=== PATIENT | female | born 1980 | race Caucasian/White ===

== ENCOUNTER 2020-11-26 10:33 | Inpatient (IN) | payer BC ==
[~2020-11-26] VITALS: Ht 167.6 cm; Wt 106.9 kg
[~2020-11-26 10:33] MED LIST: AMOX-367 PO; BENA40TA3 PO; FURO40TA6 PO; LOVA20TA2 PO; METF500T17 PO; ONDA4TAB7 PO; POTA10TA11 PO
[2020-11-26] MEDS ORDERED: ONDANSETRON 2MG/ML, 2ML IVPush ONE (12:30)
[2020-11-26] MEDS ORDERED: PHARMACOKINETIC CONSULTATION MC ONE (12:30)
[2020-11-26] MEDS ORDERED: VANCOMYCIN PER PHARMACY MC PRN ×2 (12:30→15:00)
[2020-11-26] MEDS ORDERED: morphine SULFATE 10 MG/ML, 1ML IV ONE (12:30)
[2020-11-26] MEDS ORDERED: AMPICILLIN/SULBACTAM 3 GM in SODIUM CHLORIDE 0.9% 100 ML IV ONE (12:30)
[2020-11-26] MEDS ORDERED: SODIUM CHLORIDE 0.9% 1,000ML IVBOLUS ONE (12:30)
[2020-11-26] MEDS ORDERED: MORPHINE SULFATE 4 MG/ML, 1ML ONE (12:48)
[2020-11-26] MEDS ORDERED: ONDANSETRON 2MG/ML, 2ML ONE (12:48)
[2020-11-26] MEDS ORDERED: SIMV20TA19 PO (13:00)
[2020-11-26] MEDS ORDERED: SITA100T PO (13:00)
[2020-11-26] MEDS ORDERED: VANCOMYCIN 2,200 MG in SODIUM CHLORIDE 0.9% 500 ML IV ONE (13:00)
[2020-11-26 13:20] LABS: CHLORIDE 96 mmol/L (98-107)
--- NOTE | 2020-11-26 13:21 | NUR ---
PIV STARTED, LABS DRAWN. ABX STARTED. PER ERP CULTURES NOT INDICATED AT THIS TIME. PT RESTING ON GURNEY W/ CALL LIGHT IN REACH AND SIDE RAILS UPX2. DANA CHANG. FAMILY AT BEDSIDE.
[2020-11-26 13:25] LABS: ANION GAP 11 mmol/L (5-15); CALCIUM 8.3 mg/dL (8.5-10.1); CREATININE 0.59 mg/dL (0.55-1.02)
[2020-11-26 13:41] LABS: BASOPHILS % (AUTO) 0 % (0-1); EOSINOPHILS % (AUTO) 0 % (1-7); LYMPHOCYTES % (AUTO) 18 % (22-44); MEAN CORPUSCULAR HEMOGLOBIN 28.9 pg (27.0-34.8); MEAN CORPUSCULAR HGB CONC 33.6 g/dL (32.4-35.8); MEAN PLATELET VOLUME 9.9 fL (7.4-10.4); MONOCYTES % (AUTO) 10 % (2-9); NEUTROPHILS % (AUTO) 72 % (42-75); PLATELET COUNT 180 x10^3/uL (130-400); RED BLOOD COUNT 4.58 x10^6/uL (3.82-5.3); RED CELL DISTRIBUTION WIDTH 13.8 % (9.6-15.2)
--- NOTE | 2020-11-26 13:50 | NUR ---
US AT BEDSIDE.
[2020-11-26 13:51] LABS: MD NO
--- NOTE | 2020-11-26 14:05 | NUR ---
ALL TESTS RESULTED. PT IS UP FOR RECHECK AT THIS TIME. NADN. LOGAN CHANG STARTED.
[2020-11-26] MEDS ORDERED: SODIUM CHLORIDE FLUSH 10ML SYR IVF PRN (14:30)
--- NOTE | 2020-11-26 14:59 | NUR ---
REPORT GIVEN TO GI GUTIERRES. PT IS READY FOR TRANSPORT AT THIS TIME. NADN. LOGAN CHANG INFUSING PER EMAR.
[2020-11-26] MEDS ORDERED: PROMETHAZINE 25 MG/ML, 1ML IM PRN (15:00)
[2020-11-26] MEDS ORDERED: ONDANSETRON ODT 4 MG PO PRN (15:00)
[2020-11-26] MEDS ORDERED: ENALAPRILAT 1.25 MG/ML, 2ML IVPush PRN (15:00)
[2020-11-26] MEDS ORDERED: hydrALAzine 20 MG/ML, 1ML IVPush PRN (15:00)
[2020-11-26] MEDS ORDERED: DIPHENHYDRAMINE 25 MG CAPSULE PO PRN (15:00)
[2020-11-26] MEDS ORDERED: ONDANSETRON 2MG/ML, 2ML IVPush PRN (15:00)
[2020-11-26] MEDS ORDERED: morphine SULFATE 10 MG/ML, 1ML IVPush PRN (15:00)
[2020-11-26] MEDS ORDERED: PHARMACOKINETIC MONITORING MC PRN (15:30)
[2020-11-26] MEDS: SODIUM CHLORIDE 0.9% 1,000 ML IV SCH (16:49)
[2020-11-26] MEDS: INSULIN LISPRO 100 UNITS/ML, PEN SQ-INSULIN SCH ×2 (17:50→21:21)
[2020-11-26] MEDS: AMPICILLIN/SULBACTAM 3 GM in SODIUM CHLORIDE 0.9% 100 ML IV SCH (18:32)
[2020-11-26 18:42] VITALS: BP 114/78
[2020-11-26] MEDS: SIMVASTATIN 20 MG TABLET PO SCH (21:21)
[2020-11-26] MEDS: ENOXAPARIN 40 MG/0.4 ML SQ SCH (21:21)
[2020-11-26 21:47] VITALS: BP 114/78
[2020-11-27 00:11] VITALS: BP 117/72
[2020-11-27] MEDS: AMPICILLIN/SULBACTAM 3 GM in SODIUM CHLORIDE 0.9% 100 ML IV SCH ×4 (01:04→18:35)
[2020-11-27] MEDS: VANCOMYCIN 2,000 MG in SODIUM CHLORIDE 0.9% 500 ML IV SCH ×2 (01:55→14:10)
[2020-11-27 05:38] LABS: ANION GAP 7 mmol/L (5-15); BASOPHILS % (AUTO) 0 % (0-1); CALCIUM 7.9 mg/dL (8.5-10.1); CHLORIDE 104 mmol/L (98-107); CREATININE 0.41 mg/dL (0.55-1.02); EOSINOPHILS % (AUTO) 0 % (1-7); LYMPHOCYTES % (AUTO) 20 % (22-44); MEAN CORPUSCULAR HEMOGLOBIN 29.3 pg (27.0-34.8); MEAN CORPUSCULAR HGB CONC 33.9 g/dL (32.4-35.8); MEAN PLATELET VOLUME 10.1 fL (7.4-10.4); MONOCYTES % (AUTO) 9 % (2-9); NEUTROPHILS % (AUTO) 71 % (42-75); PLATELET COUNT 163 x10^3/uL (130-400); RED BLOOD COUNT 4.21 x10^6/uL (3.82-5.3); RED CELL DISTRIBUTION WIDTH 14.1 % (9.6-15.2)
[2020-11-27 05:52] LABS: MD NO
[2020-11-27] MEDS: SODIUM CHLORIDE 0.9% 1,000 ML IV SCH (06:04)
[2020-11-27] MEDS: SENNA/DOCUSATE TABLET PO SCH (07:40)
[2020-11-27] MEDS: BENAZEPRIL 20 MG TABLET PO SCH (07:40)
[2020-11-27 07:52] VITALS: BP 125/84
[2020-11-27] MEDS: INSULIN LISPRO 100 UNITS/ML, PEN SQ-INSULIN SCH ×4 (09:42→20:31)
[2020-11-27 13:08] VITALS: BP 113/73
[2020-11-27] MEDS: POTASSIUM CHLORIDE 20 MEQ TAB.ER.PRT PO SCH (17:50)
[2020-11-27 19:35] VITALS: BP 121/79
[2020-11-27] MEDS: SIMVASTATIN 20 MG TABLET PO SCH (20:31)
[2020-11-27] MEDS: MUPIROCIN OINT 2%, 15GM TP SCH (20:32)
[2020-11-27] MEDS: ENOXAPARIN 40 MG/0.4 ML SQ SCH (20:32)
[2020-11-28 00:51] VITALS: BP 152/93
[2020-11-28] MEDS: AMPICILLIN/SULBACTAM 3 GM in SODIUM CHLORIDE 0.9% 100 ML IV SCH ×4 (01:01→23:51)
[2020-11-28] MEDS: VANCOMYCIN 2,000 MG in SODIUM CHLORIDE 0.9% 500 ML IV SCH ×3 (02:06→18:06)
[2020-11-28] MEDS: MUPIROCIN OINT 2%, 15GM TP SCH ×2 (06:30→18:00)
[2020-11-28] MEDS: ACETAMINOPHEN 325 MG TABLET PO PRN (06:30)
[2020-11-28 07:52] VITALS: BP 138/89
[2020-11-28] MEDS: INSULIN LISPRO 100 UNITS/ML, PEN SQ-INSULIN SCH ×4 (07:57→21:25)
[2020-11-28] MEDS: POTASSIUM CHLORIDE 20 MEQ TAB.ER.PRT PO SCH ×2 (07:57→18:06)
[2020-11-28] MEDS: SENNA/DOCUSATE TABLET PO SCH (07:58)
[2020-11-28] MEDS: BENAZEPRIL 20 MG TABLET PO SCH (07:58)
[2020-11-28] MEDS: HYDROcodone/APAP 5/325 TABLET PO PRN ×2 (08:02→16:28)
[2020-11-28 13:07] VITALS: BP 123/80
[2020-11-28] MEDS ORDERED: GADOTERATE 10 MMOL/20ML SYR ONE (17:48)
[2020-11-28 19:32] VITALS: BP 137/88
[2020-11-28] MEDS: ENOXAPARIN 40 MG/0.4 ML SQ SCH (21:25)
[2020-11-28] MEDS: SIMVASTATIN 20 MG TABLET PO SCH (21:25)
[2020-11-29 01:25] VITALS: BP 128/78
[2020-11-29] MEDS: HYDROcodone/APAP 5/325 TABLET PO PRN ×4 (02:07→23:52)
[2020-11-29] MEDS: AMPICILLIN/SULBACTAM 3 GM in SODIUM CHLORIDE 0.9% 100 ML IV SCH ×3 (05:18→17:10)
[2020-11-29 05:25] LABS: CHLORIDE 104 mmol/L (98-107)
[2020-11-29 05:26] LABS: BASOPHILS % (AUTO) 0 % (0-1); EOSINOPHILS % (AUTO) 1 % (1-7); LYMPHOCYTES % (AUTO) 18 % (22-44); MEAN CORPUSCULAR HEMOGLOBIN 29.3 pg (27.0-34.8); MEAN CORPUSCULAR HGB CONC 33.8 g/dL (32.4-35.8); MEAN PLATELET VOLUME 9.9 fL (7.4-10.4); MONOCYTES % (AUTO) 9 % (2-9); NEUTROPHILS % (AUTO) 72 % (42-75); PLATELET COUNT 215 x10^3/uL (130-400); RED BLOOD COUNT 4.03 x10^6/uL (3.82-5.3); RED CELL DISTRIBUTION WIDTH 13.8 % (9.6-15.2)
[2020-11-29 05:29] LABS: MD NO
[2020-11-29 05:30] LABS: ALBUMIN 2.4 g/dL (3.4-5.0); ANION GAP 8 mmol/L (5-15); CALCIUM 8.2 mg/dL (8.5-10.1); CREATININE 0.37 mg/dL (0.55-1.02)
[2020-11-29] MEDS: VANCOMYCIN 2,000 MG in SODIUM CHLORIDE 0.9% 500 ML IV SCH ×3 (06:09→21:48)
[2020-11-29] MEDS: MUPIROCIN OINT 2%, 15GM TP SCH ×2 (06:09→17:10)
[2020-11-29 07:46] VITALS: BP 132/84
[2020-11-29] MEDS: BENAZEPRIL 20 MG TABLET PO SCH (08:05)
[2020-11-29] MEDS: SENNA/DOCUSATE TABLET PO SCH (08:05)
[2020-11-29] MEDS: POTASSIUM CHLORIDE 20 MEQ TAB.ER.PRT PO SCH ×2 (08:05→17:10)
[2020-11-29] MEDS: INSULIN LISPRO 100 UNITS/ML, PEN SQ-INSULIN SCH ×4 (08:06→21:50)
[2020-11-29 12:13] VITALS: BP 134/85
[2020-11-29 18:45] VITALS: BP 142/85
[2020-11-29] MEDS: SIMVASTATIN 20 MG TABLET PO SCH (21:48)
[2020-11-29] MEDS: ENOXAPARIN 40 MG/0.4 ML SQ SCH (21:49)
[2020-11-30 00:01] VITALS: BP 126/91
[2020-11-30] MEDS: AMPICILLIN/SULBACTAM 3 GM in SODIUM CHLORIDE 0.9% 100 ML IV SCH ×4 (00:01→17:38)
[2020-11-30] MEDS: MUPIROCIN OINT 2%, 15GM TP SCH ×2 (05:23→17:38)
[2020-11-30] MEDS: VANCOMYCIN 2,000 MG in SODIUM CHLORIDE 0.9% 500 ML IV SCH ×3 (05:58→21:58)
[2020-11-30 08:40] VITALS: BP 144/83
[2020-11-30] MEDS: BENAZEPRIL 20 MG TABLET PO SCH (09:00)
[2020-11-30] MEDS: SENNA/DOCUSATE TABLET PO SCH (09:00)
[2020-11-30] MEDS: POTASSIUM CHLORIDE 20 MEQ TAB.ER.PRT PO SCH (09:00)
[2020-11-30] MEDS: INSULIN LISPRO 100 UNITS/ML, PEN SQ-INSULIN SCH ×4 (09:00→20:53)
[2020-11-30 09:12] LABS: BASOPHILS % (AUTO) 0 % (0-1); EOSINOPHILS % (AUTO) 2 % (1-7); LYMPHOCYTES % (AUTO) 22 % (22-44); MEAN CORPUSCULAR HEMOGLOBIN 29.2 pg (27.0-34.8); MEAN PLATELET VOLUME 9.6 fL (7.4-10.4); MONOCYTES % (AUTO) 10 % (2-9); NEUTROPHILS % (AUTO) 65 % (42-75); PLATELET COUNT 258 x10^3/uL (130-400); RED BLOOD COUNT 3.94 x10^6/uL (3.82-5.3); RED CELL DISTRIBUTION WIDTH 14.2 % (9.6-15.2)
[2020-11-30 09:20] LABS: MD NO
[2020-11-30] MEDS: HYDROcodone/APAP 5/325 TABLET PO PRN (15:00)
[2020-11-30 19:23] VITALS: BP_SYST 119; BP_SYST 139; BP_DIAS 73
[2020-11-30] MEDS: SIMVASTATIN 20 MG TABLET PO SCH (20:50)
[2020-11-30] MEDS: ENOXAPARIN 40 MG/0.4 ML SQ SCH (20:50)
[2020-12-01] MEDS: AMPICILLIN/SULBACTAM 3 GM in SODIUM CHLORIDE 0.9% 100 ML IV SCH ×4 (00:17→17:44)
[2020-12-01 00:22] VITALS: BP 148/90
[2020-12-01] MEDS: HYDROcodone/APAP 5/325 TABLET PO PRN ×3 (02:36→20:53)
[2020-12-01] MEDS: MUPIROCIN OINT 2%, 15GM TP SCH ×2 (06:09→17:45)
[2020-12-01] MEDS: VANCOMYCIN 2,000 MG in SODIUM CHLORIDE 0.9% 500 ML IV SCH ×3 (06:41→22:03)
[2020-12-01 06:52] VITALS: BP 131/87
[2020-12-01] MEDS: BENAZEPRIL 20 MG TABLET PO SCH (08:04)
[2020-12-01] MEDS: INSULIN LISPRO 100 UNITS/ML, PEN SQ-INSULIN SCH ×4 (08:04→21:09)
[2020-12-01] MEDS: SENNA/DOCUSATE TABLET PO SCH (08:05)
[2020-12-01 13:24] VITALS: BP 142/90
[2020-12-01 18:42] VITALS: BP 149/93
[2020-12-01] MEDS: SIMVASTATIN 20 MG TABLET PO SCH (20:53)
[2020-12-01] MEDS: ENOXAPARIN 40 MG/0.4 ML SQ SCH (20:55)
[2020-12-02 00:12] VITALS: BP 128/85
[2020-12-02] MEDS: AMPICILLIN/SULBACTAM 3 GM in SODIUM CHLORIDE 0.9% 100 ML IV SCH ×4 (01:00→18:20)
[2020-12-02] MEDS: HYDROcodone/APAP 5/325 TABLET PO PRN ×3 (05:21→20:19)
[2020-12-02 05:35] LABS: BASOPHILS % (AUTO) 1 % (0-1); EOSINOPHILS % (AUTO) 2 % (1-7); LYMPHOCYTES % (AUTO) 25 % (22-44); MEAN CORPUSCULAR HEMOGLOBIN 29.7 pg (27.0-34.8); MEAN CORPUSCULAR HGB CONC 33.9 g/dL (32.4-35.8); MEAN PLATELET VOLUME 8.7 fL (7.4-10.4); MONOCYTES % (AUTO) 8 % (2-9); NEUTROPHILS % (AUTO) 64 % (42-75); PLATELET COUNT 396 x10^3/uL (130-400); RED BLOOD COUNT 4.25 x10^6/uL (3.82-5.3)
[2020-12-02 05:47] LABS: ALBUMIN 2.8 g/dL (3.4-5.0); ANION GAP 4 mmol/L (5-15); CALCIUM 9.2 mg/dL (8.5-10.1); CHLORIDE 102 mmol/L (98-107)
[2020-12-02 05:51] LABS: MD NO
[2020-12-02] MEDS: MUPIROCIN OINT 2%, 15GM TP SCH ×2 (06:00→17:38)
[2020-12-02 06:58] VITALS: BP 152/97
[2020-12-02] MEDS: VANCOMYCIN 2,000 MG in SODIUM CHLORIDE 0.9% 500 ML IV SCH (07:13)
[2020-12-02] MEDS: INSULIN LISPRO 100 UNITS/ML, PEN SQ-INSULIN SCH ×4 (08:05→20:21)
[2020-12-02] MEDS: BENAZEPRIL 20 MG TABLET PO SCH (08:05)
[2020-12-02] MEDS: SENNA/DOCUSATE TABLET PO SCH ×2 (08:06→17:34)
[2020-12-02 12:52] VITALS: BP 137/88
[2020-12-02 18:35] VITALS: BP 135/87
[2020-12-02] MEDS: SIMVASTATIN 20 MG TABLET PO SCH (20:19)
[2020-12-02] MEDS: ENOXAPARIN 40 MG/0.4 ML SQ SCH (20:20)
[2020-12-03] MEDS: AMPICILLIN/SULBACTAM 3 GM in SODIUM CHLORIDE 0.9% 100 ML IV SCH ×2 (00:01→06:03)
[2020-12-03 00:08] VITALS: BP 125/85
[2020-12-03] MEDS: HYDROcodone/APAP 5/325 TABLET PO PRN ×2 (01:44→12:09)
[2020-12-03] MEDS: MUPIROCIN OINT 2%, 15GM TP SCH ×2 (06:00→16:10)
[2020-12-03 06:46] VITALS: BP 136/85
[2020-12-03] MEDS: INSULIN LISPRO 100 UNITS/ML, PEN SQ-INSULIN SCH ×4 (07:22→20:14)
[2020-12-03] MEDS: BENAZEPRIL 20 MG TABLET PO SCH (07:22)
[2020-12-03] MEDS: SENNA/DOCUSATE TABLET PO SCH (07:22)
[2020-12-03] MEDS: AMOXICILLIN/CLAV 875-125MG TABLET PO SCH ×2 (09:57→20:06)
[2020-12-03 13:12] VITALS: BP 142/82
[2020-12-03 18:52] VITALS: BP 128/86
[2020-12-03] MEDS: SIMVASTATIN 20 MG TABLET PO SCH (20:06)
[2020-12-03] MEDS: ENOXAPARIN 40 MG/0.4 ML SQ SCH (20:07)
[2020-12-03] MEDS: ACETAMINOPHEN 325 MG TABLET PO PRN (20:08)
[2020-12-04 01:11] VITALS: BP 130/88
[2020-12-04] MEDS: HYDROcodone/APAP 5/325 TABLET PO PRN (04:44)
[2020-12-04] MEDS: MUPIROCIN OINT 2%, 15GM TP SCH (04:46)
[2020-12-04 06:36] VITALS: BP 128/87
[2020-12-04] MEDS: INSULIN LISPRO 100 UNITS/ML, PEN SQ-INSULIN SCH (07:22)
[2020-12-04] MEDS: SENNA/DOCUSATE TABLET PO SCH (07:54)
[2020-12-04] MEDS: AMOXICILLIN/CLAV 875-125MG TABLET PO SCH (07:55)
[2020-12-04] MEDS: BENAZEPRIL 20 MG TABLET PO SCH (07:55)
[2020-12-04] MEDS ORDERED: AMOX1TAB12 PO (08:48)
[2020-12-04] MEDS ORDERED: MUPI22OI2 TP (08:48)
== END 2020-12-04 10:41 | disposition home or self-care (01) | DRG 872 ==
LOC: ED 12:41 → EDIP 14:21 → SUATTDRO 14:23 → 3N 15:10 → DCLOUNGE 12-04 10:35
PROVIDERS: ADMIT Hospitalist; ATTEND Family Medicine
DX: A41.9 Sepsis, unspecified organism (principal); L03.116 Cellulitis of left lower limb; E11.65 Type 2 diabetes mellitus with hyperglycemia; E66.9 Obesity, unspecified; E78.5 Hyperlipidemia, unspecified; E87.6 Hypokalemia; I10 Essential (primary) hypertension; Z90.710 Acquired absence of both cervix and uterus; Z83.3 Family history of diabetes mellitus; Z82.49 Family history of ischemic heart disease and other diseases of the circulatory system; Z68.38 Body mass index [BMI] 38.0-38.9, adult
CPT/HCPCS: 36415; 80048; 80069; 80202; 82040; 82962; 83735; 85025; 87070; 87205; 96374; 96375; G0378; J0295; J1650; J2405; J3370; A9575; J1815; J2270; J7030; J7040

== ENCOUNTER 2021-03-24 18:54 | Emergency (ER) | payer BC ==
[~2021-03-24] VITALS: Ht 168.9 cm; Wt 105.6 kg
[~2021-03-24 18:54] MED LIST changes: +AMOX1TAB12 PO; +MUPI22OI2 TP; +SIMV20TA19 PO; +SITA100T PO
[2021-03-24] MEDS ORDERED: CEFTRIAXONE 1,000 MG in DEXTROSE 5% 50 ML IVPB ONE (19:30)
[2021-03-24 19:49] LABS: BASOPHILS % (AUTO) 0 % (0-1); EOSINOPHILS % (AUTO) 2 % (1-7); LYMPHOCYTES % (AUTO) 34 % (22-44); MEAN CORPUSCULAR HEMOGLOBIN 29.2 pg (27.0-34.8); MEAN CORPUSCULAR HGB CONC 33.6 g/dL (32.4-35.8); MEAN PLATELET VOLUME 9.1 fL (7.4-10.4); MONOCYTES % (AUTO) 10 % (2-9); NEUTROPHILS % (AUTO) 54 % (42-75); PLATELET COUNT 248 x10^3/uL (130-400); RED BLOOD COUNT 4.47 x10^6/uL (3.82-5.3); RED CELL DISTRIBUTION WIDTH 13.8 % (9.6-15.2)
[2021-03-24] MEDS ORDERED: MORPHINE SULFATE 4 MG/ML, 1ML ONE (19:52)
[2021-03-24] MEDS ORDERED: ONDANSETRON 2MG/ML, 2ML ONE (19:52)
[2021-03-24 19:59] LABS: ALBUMIN 3.1 g/dL (3.4-5.0); ANION GAP 8 mmol/L (5-15); CALCIUM 9.3 mg/dL (8.5-10.1); CHLORIDE 105 mmol/L (98-107); CREATININE 0.52 mg/dL (0.55-1.02)
[2021-03-24] MEDS ORDERED: ONDANSETRON 2MG/ML, 2ML IVPush ONE (20:00)
[2021-03-24] MEDS ORDERED: MORPHINE SULFATE 4 MG/ML, 1ML IVPush ONE (20:00)
--- NOTE | 2021-03-24 20:51 | NUR ---
Patient given discharge instructions and they have confirmed that they understand the instructions. Patient ambulatory with steady gait. NAD, all questions answered appropriately, denies additional needs at this time. No personal belongings left in room after discharge.
[2021-03-24 20:52] VITALS: BP 158/72
== END 2021-03-24 20:54 | disposition home or self-care (01) ==
LOC: ED 20:00
DX: L03.116 Cellulitis of left lower limb (principal); E11.9 Type 2 diabetes mellitus without complications; I10 Essential (primary) hypertension; E78.00 Pure hypercholesterolemia, unspecified
CPT/HCPCS: 36415; 80048; 82040; 85025; 96365; 99284; J0696